=== PATIENT | male | born 1960 | race Caucasian/White ===

== ENCOUNTER → 2017-05-11 | Outpatient (CLI) | payer OTHER ==
[~2017-05-11] VITALS: Ht 167.6 cm; Wt 74.4 kg
[~2017-05-11] MED LIST: LIPITOR 20 MG T20 M1 PO; PRINIVIL10 MG PO; VENTOLIN HFA 1818 GM INH
--- NOTE | ~2017-05-11 | P ---
[facility] [place] [address] PROCEDURE REPORT Name: CARMELA JORGE Room #: REG [facility]#: [id number] Admission: 05/11/17 Attend Phys: Efe Yost MD Discharge: Date of : 60 Report #: [id number] THIS REPORT FOR: //name// CC: Efe Joshi MD DATE OF SERVICE: 05/11/2017 BRIEF HISTORY: The patient is a 56-year-old male who has had reflux symptoms. He has also had problems with cough. In addition, he has intermittent solid food dysphagia. PREOPERATIVE DIAGNOSIS: Intermittent solid food dysphagia. POSTOPERATIVE DIAGNOSES: 1. Grade A erosive esophagitis. 2. Trivial sliding type hiatus hernia. 3. Diffuse gastritis. 4. Prominent duodenal papilla, biopsied. 5. Schatzki ring. MEDICATIONS: Deep sedation with propofol per anesthesia. SPECIMENS: 1. Biopsies of duodenal papilla. 2. Biopsies of gastritis. 3. Biopsies of esophagus, rule out eosinophilic esophagitis. MEDICATIONS: Deep sedation with propofol per anesthesia. ESTIMATED BLOOD LOSS: 3 mL. PROCEDURE: EGD with biopsy and Joe dilation. FINDINGS: Prior to propofol sedation, procedure of upper endoscopy was discussed with the patient as well as potential risks and its complications. He indicates he understands and desires to proceed. DESCRIPTION OF PROCEDURE: With the patient in left lateral decubitus position, the [employer] video endoscope was inserted in the cervical esophagus under direct vision without difficulty. Examination of this organ through its entire length revealed evidence of esophagitis with an erosion in the distal esophagus, which was extending about 5 mm into the esophagus. Otherwise, the squamocolumnar junction was unremarkable. No ulcers or Caballero mucosa was seen. Intermittently, a very tiny trivial hiatus hernia was seen. In addition, a mild [facility] [address] [place] [address] PROCEDURE REPORT Name: CARMELA JORGE Room #: REG [facility]OR[facility]IN Carvalho#: [id number] Admission: 05/11/17 Attend Phys: Efe Yost MD Discharge: Date of : 60 Report #: [id number] Schatzki ring was seen. I also might point out that there were some very subtle rings in the distal esophagus, raising a question of eosinophilic esophagitis. No obstructing lesions were noted. Typical furrows of eosinophilic esophagitis were not seen. The scope was advanced in the stomach, which was examined on end view as well as retroflexed views. There was a pattern of diffuse gastritis with erythema in the antrum of stomach. No ulcers were seen. No evidence of outlet obstruction. Upon retroflexion, no mass lesions were seen. The hiatus hernia was seen. The pylorus, duodenal bulb and postbulbar duodenal sweep were inspected and generally unremarkable. The duodenal papilla was identified. The papilla was larger than typically seen. It had a smooth and benign appearance. However, since it was larger than expected, biopsies were obtained. At that point, the scope was slowly withdrawn and careful circumferential views confirmed the above findings. Subsequently, the patient was dilated with passage of a 50-Bruneian Joe dilator. No resistance was encountered. CONDITION OF THE PATIENT UPON DISCHARGE: Following procedure, the patient drowsy and arousal. He will be discharged to home when fully ambulatory. INSTRUCTIONS TO THE PATIENT AND FAMILY AT THE TIME OF DISCHARGE: We will follow up on biopsies obtained today. He does have evidences of esophagitis. We will place him on omeprazole 40 mg daily. He should take it for at least 6 weeks. If he does well and has good control of symptoms, we attempt to taper possibly to every other day or intermittent use as tolerated to control his symptoms. We will follow up on biopsies and make further recommendations. In addition, he may need repeat dilation in the future. We will follow up on esophageal biopsies with regard to possible eosinophilic esophagitis. If the patient does not have improvement in symptoms, he should follow up in the office. He will otherwise return to care of Dr. Coral Joshi and return to see me as needed. <ELECTRONICALLY SIGNED> By: Efe Yost MD 05/12/172031 1011 1100 Efe Yost MD /nt
--- NOTE | ~2017-05-11 | S ---
[facility] [place] [address] SURGICAL PATH RPT PROCEDURE Name: MODECARMELA P Room #: REG CHARITO Adalgisa.#: [id number] Admission: 05/11/17 Date of : 60 Discharge: Report #: [id number] Path Case #: [id number] PATHOLOGY REPORT COLLECTION DATE: 05/11/2017 RECEIVED DATE: 05/11/2017 SUBMITTING PHYS: Dr. Efe Yost OTHER PHYS: Dr. Coral De La Rosa SPECIMEN(S) RECEIVED: A.Bx of duodenal papilla, enlarged B.Bx of gastritis C.Bx of esophagus r/o eosinophilic esophagitis * * * * * * * * * * * * FINAL DIAGNOSIS: A. Small bowel mucosa, enlarged duodenal papilla, endoscopic biopsy: - Moderate active peptic duodenitis with fundic-type metaplasia, focal ulceration as well as reactive atypia. - Negative for dysplasia or malignancy. B. Gastric mucosa, gastritis, endoscopic biopsy: - Mild reactive gastropathy. - Negative for intestinal metaplasia or atrophy. - Negative for Helicobacter pylori. C. Squamous mucosa, esophagus rule out EOE, endoscopic biopsy: - Moderate active esophagitis with numerous intraepithelial eosinophils exceeding 75/high power field (please see comment). - Negative for intestinal metaplasia or dysplasia. COMMENT: Well controlled Helicobacter pylori immunohistochemical stain performed on block B1 - negative. Part C: Examination of the esophageal biopsy tissue shows squamous mucosa with a marked number of intraepithelial eosinophils. Although eosinophils are commonly encountered in inflammation due to reflux esophagitis, the eosinophils in the present specimen are numerous, exceeding 75/hpf. Apart from reflux esophagitis, potential etiologies for the histologic pattern include allergic and collagen vascular diseases, fungal or parasitic infections, and eosinophilic esophagitis (idiopathic). Please correlate with clinical and endoscopic findings. (IUV:pit; 05/12/2017) PATHOLOGIST: Blanca Fuchs M.D. REPORT ELECTRONICALLY SIGNED BY: Blanca Fuchs M.D. DATE/TIME: 05/12/2017 14:[address] [address] SURGICAL PATH RPT PROCEDURE Name: CARMELA JORGE Room #: REG [facility]#: [id number] Admission: 05/11/17 Date of : 60 Discharge: Report #: [id number] Path Case #: [id number] * * * * * * * * * * * * GROSS PATHOLOGY: A. Received in formalin labeled "LUKE Joe of enlarged duodenal papilla," are 4 segments of malik soft tissue measuring 1.2 x 0.8 x 0.3 cm in aggregate dimensions and ranging from 0.1 to 0.4 cm in maximum dimension. The specimen is submitted entirely in cassette A1. B. Received in formalin labeled "LUKE Joe of gastritis," are 4 segments of malik soft tissue measuring 1.5 x 0.9 x 0.3 cm in aggregate dimensions and ranging from 0.3 to 0.7 cm in maximum dimension. The specimen is submitted entirely in cassette B1. C. Received in formalin labeled "Carmela Mode, BX of esophagus, rule out EOE," are 3 segments of malik soft tissue measuring 1.1 x 0.9 x 0.3 cm in aggregate dimensions and ranging from 0.3 to 0.5 cm in maximum dimension. The specimen is submitted entirely in cassette C1. (TSD; 05/11/2017) CLINICAL HISTORY: Pre-OP DX: GERD, dysphagia Post-OP DX: Gastritis, enlarged duodenal papilla, Schatzki's ring, small hiatal hernia, esophagitis INITIAL CPT CODE(S): A; 91731 B; 63434, 78338 C; 27155 Professional services performed by [facility] at [facility] [address], [place] [address] Technical services performed by [facility] at [address] [place] [address], [address], [place] [address]. [facility] [address] [place] [address] PHONE: [phone] DIRECTOR: Naseem Alanis M.D. * * * END OF REPORT * * *
== END | disposition home or self-care (01) ==
LOC: GI 07:33
DX: K29.80 Duodenitis without bleeding (principal); K31.9 Disease of stomach and duodenum, unspecified; K20.0 Eosinophilic esophagitis; K44.9 Diaphragmatic hernia without obstruction or gangrene; I10 Essential (primary) hypertension; E78.00 Pure hypercholesterolemia, unspecified; J45.909 Unspecified asthma, uncomplicated; Z98.890 Other specified postprocedural states; Z88.2 Allergy status to sulfonamides; Z79.899 Other long term (current) drug therapy
CPT/HCPCS: 62110; 62900